=== PATIENT | female | born 1965 | race Hispanic/Latino ===

== ENCOUNTER → 2018-04-17 | Outpatient (CLI) | payer BC | END | disposition home or self-care (01) | LOC: RAH 15:12 | DX: R92.8 Other abnormal and inconclusive findings on diagnostic imaging of breast (principal); Z98.82 Breast implant status | CPT/HCPCS: 77066 ==

== ENCOUNTER → 2019-08-09 | Outpatient (CLI) | payer BC | END | disposition home or self-care (01) | LOC: RAH 09:33 | PROVIDERS: ATTEND Family Medicine | DX: Z12.31 Encounter for screening mammogram for malignant neoplasm of breast (principal) | CPT/HCPCS: 77067 ==

== ENCOUNTER 2022-05-25 05:59 | Day surgery (SDC) | payer BC ==
[2022-05-23 13:40] LABS: CREATININE 0.8 mg/dL (0.5-1.5); POTASSIUM 3.4 mmol/L (3.5-5.1)
[2022-05-24 10:05] VITALS: BP 131/87
[~2022-05-25] VITALS: Ht 162.6 cm; Wt 68.5 kg
[2022-05-25] VITALS (18 sets, daily range): BP systolic 101–134; BP diastolic 57–78
[~2022-05-25 05:59] MED LIST: NAPR500T6 PO
[2022-05-25] MEDS ORDERED: LACTATED RINGERS 1000ML 1,000 ML IV SCH (06:00)
[2022-05-25] MEDS ORDERED: SILVER NITRATE APPLICATOR 1 SWAB TP ONE (07:25)
[2022-05-25] MEDS ORDERED: CEFAZOLIN SODIUM 1 GM VIAL ONE (07:45)
[2022-05-25] MEDS ORDERED: METOCLOPRAMIDE 10 MG/2 ML VIAL ONE (07:51)
[2022-05-25] MEDS ORDERED: KETOROLAC 30MG VIAL (30MG/ML) ONE (07:51)
[2022-05-25] MEDS ORDERED: MIDAZOLAM HCL 1 MG/ML 2ML VIAL ONE (07:52)
[2022-05-25] MEDS ORDERED: PROPOFOL 10 MG/ML 20ML VIAL IV ONE (07:53)
[2022-05-25] MEDS ORDERED: FENTANYL CITRATE PF 50 MCG/1 ML 2ML VIAL ONE (07:53)
[2022-05-25] MEDS ORDERED: ONDANSETRON 4MG INJ ONE (08:04)
[2022-05-25] MEDS ORDERED: LIDOCAINE HCL 2% PF 20 ML JEL DISP.SYRIN MM ONE (08:46)
[2022-05-25] MEDS ORDERED: MEPERIDINE-PF 25 MG/ML SYG ONE ×2 (09:15→09:24)
== END 2022-05-25 11:00 | disposition home or self-care (01) ==
LOC: DAH 05:59
PROVIDERS: ATTEND Obstetrics & Gynecology
DX: N95.0 Postmenopausal bleeding (principal); N93.9 Abnormal uterine and vaginal bleeding, unspecified; N95.2 Postmenopausal atrophic vaginitis; N84.0 Polyp of corpus uteri; N81.10 Cystocele, unspecified; Z82.49 Family history of ischemic heart disease and other diseases of the circulatory system; Z83.3 Family history of diabetes mellitus; Z80.3 Family history of malignant neoplasm of breast; Z98.890 Other specified postprocedural states
CPT/HCPCS: 80048; 87426; 36415; 58558; A6260; A4663 ×2; J7030; A4351; A4355; J7120; J3010; J2250; J2704; J2405; J1885; J2175 ×2; J2765; A4215; A4223; A4222; A4221; J0690

== ENCOUNTER → 2023-04-06 | Outpatient (CLI) | payer BC | END | disposition home or self-care (01) | LOC: RAH 11:06 | PROVIDERS: ATTEND Obstetrics & Gynecology | DX: Z12.31 Encounter for screening mammogram for malignant neoplasm of breast (principal) | CPT/HCPCS: 77067 ==

== ENCOUNTER → 2023-04-27 | Outpatient (CLI) | payer BC ==
[~2023-04-27] MED LIST changes: +GADOTERATE MEGLUMINE 10 MMOL/20 ML VIAL IV ONE
== END | disposition home or self-care (01) ==
LOC: RAH 14:57
PROVIDERS: ATTEND Obstetrics & Gynecology
DX: Z80.3 Family history of malignant neoplasm of breast (principal)
CPT/HCPCS: 77049; A9575

== ENCOUNTER → 2024-04-25 | Outpatient (CLI) | payer BC ==
[~2024-04-25] MED LIST changes: -GADOTERATE MEGLUMINE 10 MMOL/20 ML VIAL IV ONE
== END | disposition home or self-care (01) ==
LOC: RAH 07:50
PROVIDERS: ATTEND Obstetrics & Gynecology
DX: N60.01 Solitary cyst of right breast (principal); N60.02 Solitary cyst of left breast; R92.323 Mammographic fibroglandular density, bilateral breasts; Z98.82 Breast implant status; Z80.3 Family history of malignant neoplasm of breast
CPT/HCPCS: 77066

== ENCOUNTER → 2024-11-01 | Outpatient (CLI) | payer BC ==
[~2024-11-01] MED LIST changes: +NAPR-1506 PO; -NAPR500T6 PO
--- NOTE | 2024-11-01 14:11 | HMCIMG ---
US BREAST BILATERAL REASON: UNSPECIFIED LUMP ON BREAST. COMPARISON: 04/25/2024 TECHNIQUE: Bilateral breast ultrasound study was performed. FINDINGS: Right breast cysts are seen at 2:00 measuring 4 mm and 6 mm each slightly increased in size from previous study.. Hypoechoic nodule is seen at 4:00 of left breast measuring 5 x 3 x 5 mm unchanged. Interval development of left breast nodules are seen at 10:00 measuring 6 x 2 x 5 mm and in the retroareolar region measuring 6 x 3 x 6 mm. Short-term follow-up is recommended. Bilateral axillary lymph nodes are seen. IMPRESSION: There is interval development of 2 subcentimeter left breast nodules at 10:00 and retroareolar region. Follow-up examination in 6 months is recommended. CATEGORY 3: PROBABLE BENIGN-SHORT INTERVAL FOLLOWUP SUGGESTED Recommend monthly self breast exam as well as annual clinical examination.
== END | disposition home or self-care (01) ==
LOC: RAH 09:20
PROVIDERS: ATTEND Obstetrics & Gynecology
DX: N60.01 Solitary cyst of right breast (principal); N63.22 Unspecified lump in the left breast, upper inner quadrant; N63.10 Unspecified lump in the right breast, unspecified quadrant

== ENCOUNTER → 2025-04-28 | Outpatient (CLI) | payer BC ==
--- NOTE | 2025-04-28 10:36 | HMCIMG ---
MAMMO SCREENING IMPLANT HISTORY: Screening mammogram. COMPARISON: 04/25/2024 TECHNIQUE: Bilateral screening mammogram with CAD was performed with craniocaudal and mediolateral oblique projections. Additional pushback views were obtained. FINDINGS: The breasts are heterogeneous dense, which may obscure small masses. Bilateral breast implants are seen. There is no evidence of a dominant mass, or suspicious microcalcification. There is no evidence of nipple retraction or skin thickening. IMPRESSION: 1. Stable mammogram. Patient was entered into a reminder system with a target due date for their next mammogram. BI-RADS: CATEGORY 2: BENIGN FINDINGS Recommend monthly self breast exam as well as annual clinical examination. A negative x-ray should not delay biopsy if a dominant or clinically suspicious mass is present, since 8-10% of cancers are not identified by mammography. Dense breasts particularly, may obscure an underlying neoplasm. Some of these may be detected clinically and therefore, clinical examination is an essential part of breast evaluation.
== END | disposition home or self-care (01) ==
LOC: RAH 09:25
PROVIDERS: ATTEND Obstetrics & Gynecology
DX: Z12.31 Encounter for screening mammogram for malignant neoplasm of breast (principal); R92.333 Mammographic heterogeneous density, bilateral breasts; Z98.82 Breast implant status
CPT/HCPCS: 77067

== ENCOUNTER → 2025-11-10 | Outpatient (CLI) | payer BC ==
--- NOTE | 2025-11-10 12:50 | HMCIMG ---
Left BREAST ULTRASOUND: Follow-up for prior mammogram from 04/28/2025 and 05/09/2025 are available. Finding : Real-time examination of the [left breast demonstrates heterogeneous echotexture throughout the breast with breast implant which is intact. The left thyroid nodule at 12:00 there is a small cyst measuring 0.5 x 0.6 x 0.2 cm left breast at 2:00 there is a cyst measuring 0.5 x 0.5 x 0.3 cm left breast at 3:00 there is a small nodule measuring 0.4 x 0.3 x 0.5 cm left breast at 10:00 there is a small nodule measuring 0.6 x 0.3 x 0.5 cm left breast is a hypoechoic nodule in the subareolar measuring 0.5 x 0.3 x 0.5 cm. HISTORY NODULES ARE SEEN BEFORE AND APPEARS TO BE UNCHANGED. IMPRESSION: Fibrocystic changes the left breast Stable nodule seen in the left breast as described above and unchanged from prior study.. FINAL ASSESSMENT: ACR: BI-RAD- 2. Benign Finding.
== END | disposition home or self-care (01) ==
LOC: RAH 10:30
PROVIDERS: ATTEND Obstetrics & Gynecology
DX: N60.12 Diffuse cystic mastopathy of left breast (principal); N63.21 Unspecified lump in the left breast, upper outer quadrant; N63.22 Unspecified lump in the left breast, upper inner quadrant; R92.332 Mammographic heterogeneous density, left breast
CPT/HCPCS: 76641